=== PATIENT | female | born 1955 | race Caucasian/White ===

== ENCOUNTER → 2017-07-08 14:55 | Outpatient (CLI) | payer BC, SELFPAY ==
--- NOTE | 2017-07-08 | US_ITS ---
MM Dig mamm BI DX w/CAD, US breast LT complete COMPARISON: 12/20/2016, 12/11/2016 INDICATION: Follow-up abnormal mammogram ORDERING PHYSICIAN: Mary Aviles PATIENT AGE: 61 years TECHNIQUE: Standard views and prompt centimeters the left breast along with bilateral breast ultrasound FINDINGS: There is dense fibroglandular tissue which decreases sensitivity of mammography. There remains some asymmetric density in the deep lateral aspect of the left breast. Is not significantly changed compared to the previous exam. There are benign-appearing calcifications. Left breast ultrasound: Scattered cysts are present in the left breast including a 4 mm cyst at 1:00, 6 x 5 mm complex cyst at 3:00, 7 x 4 mm complex cyst at 4:00, 3 mm cyst at 7:00, 5 mm complex cyst at 10:00. No solid suspicious appearing nodules evident with no significant change IMPRESSION: Benign findings. No convincing evidence of malignancy with no significant change BI-RADS Category: 2 Benign Finding(s) RECOMMENDED FOLLOW-UP: 6M - 6 MONTH FOLLOW-UP Recommend resume bilateral mammogram in November 2017 (A letter has been sent to the patient regarding results of the study.)
== END ==
PROVIDERS: Family Provider Family Medicine; PCP Family Medicine; Visit Provider Nurse Practitioner Family
DX: R92.8 Other abnormal and inconclusive findings on diagnostic imaging of breast (principal)
CPT/HCPCS: 76641; 77066

== ENCOUNTER → 2018-02-09 16:07 | Outpatient (CLI) | payer BC, SELFPAY ==
--- NOTE | 2018-02-09 16:09 | MM_ITS ---
MM Dig screening mamm BI w/CAD ORDERING PHYSICIAN : Saeed Campo MD PATIENT AGE: 62 years GENDER: Female COMPARISON: September bilateral mammogram & June 2017 left breast INDICATION: ITS.REASON: SCREENING no hormones. No new complaints.. Previous benign excisional biopsy right breast Family history. Paternal aunt with breast cancer TECHNIQUE: Standard CC and MLO images were obtained. R2 CAD reviewed. FINDINGS: Moderately Dense breast tissue at the central portion of the breast bilaterally, extending towards upper-outer quadrant. Similar pattern is been seen previously with no new dominant mass. No discrete architectural distortion or suspicious findings otherwise today. Similar pattern to previous studies overall. RIGHT BREAST:Heterogeneous density breast with no new findings. LEFT BREAST:Area of mild asymmetric density previously noted deep left breast appears stable and I believe merely fibroglandular elements The small area of calcifications at the central left breast appear also stable, & can be followed. IMPRESSION . Stable bilateral mammogram. Moderately dense heterogeneous breast pattern does somewhat decreased sensitivity of mammography Today palpable areas arise low threshold for ultrasound may be of benefit to compliment mammography in this breast pattern I see no discrete new findings on today's study warrant such. BI-RADS Category: 2 Benign Finding(s) RECOMMENDED FOLLOW-UP: 1YR 1 YEAR FOLLOW-UP (A letter has been sent to the patient regarding results of the study.)
== END ==
PROVIDERS: Family Provider Family Medicine; PCP Family Medicine; Visit Provider Family Medicine
DX: Z12.31 Encounter for screening mammogram for malignant neoplasm of breast (principal)
CPT/HCPCS: 77067

== ENCOUNTER → 2018-05-26 15:46 | Outpatient (POV) | payer BC, SELFPAY | PROVIDERS: Visit Provider Dermatology | DX: Z00.00 Encounter for general adult medical examination without abnormal findings (principal) ==

== ENCOUNTER → 2019-04-12 07:41 | Outpatient (CLI) | payer BC, SELFPAY ==
--- NOTE | 2019-04-12 07:48 | MM_ITS ---
PROCEDURE: MM DIG SCREENING MAMM BI W/CAD CLINICAL INDICATION: SCREENING Is a history of breast cancer patient's paternal aunt. There has been a previous biopsy right breast for benign disease. COMPARISON: DMDXUAVL DIG MAMM-DX UNI A/VWS-LT W/CAD from 12/20/2016 DXBI MM Dig mamm BI DX w/CAD from 07/08/2017 [facility] MM Dig screening mamm BI w/CAD from 02/09/2018 TECHNIQUE: Standard CC and MLO images were obtained. R2 CAD reviewed. FINDINGS: Moderate diffuse somewhat heterogenic fibroglandular densities are seen in the central portions of both breasts. The findings are fairly symmetrical bilaterally. There are stable microcalcifications left breast. There is no new or suspicious lesion in either breast and no suspicious microcalcifications. IMPRESSION: Moderate breast density with no suspicious lesions seen BI-RAD Category: 2 Benign Finding(s) FOLLOW-UP: 1YR 1 Year Follow-up (A letter has been sent to the patient regarding results of the study.) Dictated by: Dr. Quincy Oconnell MD 04/13/2019 10:[address] Quincy Oconnell MD in [place] 04/13/2019 10:58
--- NOTE | 2019-04-12 08:25 | XR_ITS ---
PROCEDURE: XR DEXA AXIAL SKELETON CLINICAL HISTORY: OSTEOPENIA COMPARISON: No exams were available for comparison FINDINGS: The L1-L4 density is 1.092 grams/centimeters sq with T-score -0.7. Right femoral neck density is 0.861 grams/centimeters sq with T-score -1.3. There is mild lumbar scoliosis convex left IMPRESSION: Osteopenia with moderate fracture risk. Treatment advised. Suggest follow-up exam March 2021. Dictated by: Clayton Dolan MD 04/12/2019 12:35 Electronically signed by Clayton Dolan MD in [place] 04/12/2019 12:35
== END ==
PROVIDERS: PCP Nurse Practitioner Family; Visit Provider Nurse Practitioner Family
DX: Z12.31 Encounter for screening mammogram for malignant neoplasm of breast (principal); Z13.820 Encounter for screening for osteoporosis; Z78.0 Asymptomatic menopausal state; M85.89 Other specified disorders of bone density and structure, multiple sites
CPT/HCPCS: 77067; 77080

== ENCOUNTER → 2020-04-14 07:45 | Outpatient (CLI) | payer MEDICARE, OTHER, SELFPAY ==
--- NOTE | 2020-04-14 07:51 | MM_ITS ---
PROCEDURE: MM DIG SCREENING MAMM BI W/CAD Digital Breast Tomosynthesis Included CLINICAL INDICATION: SCREENING There is a history of breast cancer in the patient's paternal aunt. There has been a previous biopsy right breast for benign disease. COMPARISON: MG DXBI MM Dig mamm BI DX w/CAD from 07/08/2017 MG [facility] MM Dig screening mamm BI w/CAD from 02/09/2018 MG MM DIG SCREENING MAMM BI W/CAD from 04/12/2019 TECHNIQUE: Standard CC and MLO images and 3D Tomosynthesis was obtained. R2 CAD reviewed. FINDINGS: Moderate diffuse fibroglandular densities are seen in the central portions of both breast and the findings are bilateral and symmetrical. There are few benign-appearing microcalcifications in each breast. There is no suspicious lesion and no suspicious microcalcifications. IMPRESSION: Moderate breast density with no suspicious lesions seen BI-RAD Category: 2 Benign Finding(s) FOLLOW-UP: 1YR 1 Year Follow-up (A letter has been sent to the patient regarding results of the study.) Dictated by: Dr. Quincy Oconnell MD 04/14/2020 12:36 Dr. Quincy Oconnell MD in [place] 04/14/2020 12:36
== END ==
PROVIDERS: PCP Nurse Practitioner Family; Visit Provider Nurse Practitioner Family
DX: Z12.31 Encounter for screening mammogram for malignant neoplasm of breast (principal)
CPT/HCPCS: 77063; 77067

== ENCOUNTER → 2021-04-04 08:14 | Outpatient (CLI) | payer MEDICARE, OTHER, SELFPAY ==
--- NOTE | 2021-04-04 08:19 | MM_ITS ---
PROCEDURE: MM DIG SCREENING MAMM BI W/CAD Digital Breast Tomosynthesis Included CLINICAL INDICATION: SCREENING Cancer patient's paternal aunt. There has been a previous biopsy right breast for benign disease. COMPARISON: MG [facility] MM Dig screening mamm BI w/CAD from 02/09/2018 MG MM DIG SCREENING MAMM BI W/CAD from 04/12/2019 MG MM DIG SCREENING MAMM BI W/CAD from 04/14/2020 TECHNIQUE: Standard CC and MLO images and 3D Tomosynthesis was obtained. R2 CAD reviewed. FINDINGS: Moderate fibroglandular densities are seen in the central portions of both breast and the findings are bilateral and symmetrical. There are couple of benign-appearing microcalcifications left breast. There is no suspicious lesion and no suspicious microcalcifications. IMPRESSION: Moderate breast density with no suspicious lesions seen BI-RAD Category: 2 Benign Finding(s) FOLLOW-UP: 1YR 1 Year Follow-up (A letter has been sent to the patient regarding results of the study.) Dictated by: Dr. Quincy Oconnell MD 04/10/2021 14:18 Dr. Quincy Oconnell MD in [place] 04/10/2021 14:18
--- NOTE | 2021-04-04 08:54 | XR_ITS ---
PROCEDURE: XR DEXA AXIAL SKELETON CLINICAL HISTORY: OSTEOPOROSIS COMPARISON: CR,DX,US BONE3 BONE DENSITOMETRY(HIP:LT SPINE from 09/22/2015 FINDINGS: The right hip BMD is 0.67 with a T-score of -1 6. The left hip BMD is 0.842 with a T-score of -0.8. The lumbar spine BMD is 0.952 with a T-score of -0.9. Previously the lowest density was in the left femoral neck with T-score of -2.1 IMPRESSION: This patient is considered osteopenic according to the World Health Organization criteria. Bone density is between 10 and 25 percent below young normal. Fracture risk is moderate. Treatment is advised. Based on these results a follow-up exam is recommended in 2 year. Dictated by: Clayton Dolan MD 04/05/2021 14:56 Clayton Dolan MD in [place] 04/05/2021 14:56
== END ==
PROVIDERS: PCP Nurse Practitioner Family; Visit Provider Physician Assistant
DX: Z12.31 Encounter for screening mammogram for malignant neoplasm of breast (principal); Z13.820 Encounter for screening for osteoporosis; Z78.0 Asymptomatic menopausal state
CPT/HCPCS: 77063; 77067; 77080

== ENCOUNTER → 2022-04-08 10:10 | Outpatient (CLI) | payer MEDICARE, OTHER, SELFPAY ==
--- NOTE | 2022-04-08 10:13 | MM_ITS ---
PROCEDURE INFORMATION: Exam: MG Bilateral Screening 3D Mammography Exam date and time: 04/08/2022 10:14 AM Age: 66 years old Clinical indication: Screening examination. A paternal aunt had breast cancer. History of benign right excisional biopsy. TECHNIQUE: Imaging protocol: Bilateral Screening tomosynthesis and 2D mammography including computer-aided detection (CAD) when performed. COMPARISON: 1. MG MM DIG SCREENING MAMM BI W/CAD 04/04/2021 8:27 AM 2. MG MM DIG SCREENING MAMM BI W/CAD 04/14/2020 8:06 AM 3. MG MM DIG SCREENING MAMM BI W/CAD 04/12/2019 8:12 AM 4. MG [facility] MM Dig screening mamm BI w/CAD 02/09/2018 4:14 PM FINDINGS: MAMMOGRAPHY: Breast composition: There are scattered areas of fibroglandular density. Mass: None. Architectural distortion: None. Calcifications: No suspicious calcifications. Asymmetric density: None. Skin thickening: None. Axillary adenopathy: None. IMPRESSION: No mammographic evidence of malignancy. Annual screening is recommended unless otherwise clinically indicated. ASSESSMENT: BI-RADS Category 1: Negative
== END ==
PROVIDERS: PCP Nurse Practitioner Family; Visit Provider Nurse Practitioner Family
DX: Z12.31 Encounter for screening mammogram for malignant neoplasm of breast (principal)
CPT/HCPCS: 77063; 77067

== ENCOUNTER → 2022-05-14 08:43 | Outpatient (POV) | payer MEDICARE, OTHER, SELFPAY | PROVIDERS: Visit Provider Dermatology | DX: Z00.00 Encounter for general adult medical examination without abnormal findings (principal) ==

== ENCOUNTER → 2023-02-04 10:27 | Outpatient (CLI) | payer MEDICARE, OTHER, SELFPAY ==
--- NOTE | 2023-02-04 10:39 | XR_ITS ---
FINAL REPORT CLINICAL HISTORY: LT FOOT PAIN COMPARISON: None FINDINGS: LEFT FOOT Three views of the left foot demonstrate no acute fracture or dislocation. There is mild irregularity at the base of the fifth metatarsal. There are mild hypertrophic changes at the first metatarsophalangeal joint. The soft tissues are unremarkable. IMPRESSION: Degenerative changes without acute process. Reviewed, Interpreted and Dictated by Miguel Lentz MD Transcribed by Samara Nelson Authenticated and [facility]
== END ==
PROVIDERS: PCP Nurse Practitioner Family; Visit Provider Nurse Practitioner Family
DX: M79.672 Pain in left foot (principal)
CPT/HCPCS: 73630

== ENCOUNTER → 2023-04-11 07:43 | Outpatient (CLI) | payer MEDICARE, OTHER, SELFPAY ==
--- NOTE | 2023-04-11 07:51 | XR_ITS ---
FINAL REPORT CLINICAL HISTORY: OSTEOPOROSIS COMPARISON: 04/04/2021 FINDINGS: Using L1-4, the bone mineral density of the spine is 0.985 g/cm2, corresponding to T-score of -0.6, within normal limits. Previous 0.952 g/cm2 with T-score of -0.9. Using the left hip, the bone mineral density of the femoral neck is 0.838 g/cm2, corresponding to a T-score of -0.9, within normal limits. Previous 0.842 g/cm2 with T-score of -0.8. Using the right hip, the bone mineral density of the femoral neck is 0.865 g/cm2, corresponding to a T-score of -0.6, within normal limits. Previous 0.675 g/cm2 with T-score of -1.6. FRAX not reported because all T-scores at or above-1.0. NOTE: T-score: Standard deviation compared with peak bone mass of young adult mean. *Following the recommendations of the International Society of Bone densitometry, classification of hip BMD is based on the lower of two T-scores; total hip or femoral neck. IMPRESSION: Normal bone mineral density of the lumbar spine and hips. Reviewed, Interpreted and Dictated by Souleymane Rojas III, MD Transcribed by Samara Nelson Authenticated and [facility]
--- NOTE | 2023-04-11 07:52 | MM_ITS ---
PROCEDURE INFORMATION: Exam: MG Bilateral Screening 3D Mammography Exam date and time: 04/11/2023 7:58 AM Age: 67 years old Clinical indication: Screening examination; Family history of breast cancer in aunt TECHNIQUE: Imaging protocol: Bilateral Screening tomosynthesis and 2D mammography including computer-aided detection (CAD) when performed. COMPARISON: 1. MG MM DIG SCREENING MAMM BI W/CAD 04/08/2022 10:14 AM 2. MG MM DIG SCREENING MAMM BI W/CAD 04/04/2021 8:27 AM FINDINGS: MAMMOGRAPHY: Breast composition: The breasts are heterogeneously dense, which may obscure small masses. Mass: None. Architectural distortion: None. Calcifications: No suspicious calcifications. Asymmetric density: None. Skin thickening: None. Axillary adenopathy: None. IMPRESSION: No mammographic evidence of malignancy. Annual screening is recommended unless otherwise clinically indicated. ASSESSMENT: BI-RADS Category 1: Negative
== END ==
PROVIDERS: PCP Nurse Practitioner Family; Visit Provider Nurse Practitioner Family
DX: Z12.31 Encounter for screening mammogram for malignant neoplasm of breast; Z13.820 Encounter for screening for osteoporosis; Z78.0 Asymptomatic menopausal state
CPT/HCPCS: 77063; 77067; 77080

== ENCOUNTER → 2023-05-06 15:18 | Outpatient (CLI) | payer MEDICARE, OTHER, SELFPAY ==
--- NOTE | 2023-05-06 15:19 | MR_ITS ---
FINAL REPORT CLINICAL HISTORY: R/O stress fracture. FOOT PAIN [id number]. FINDINGS: Multiplanar MR imaging of the left foot was performed without contrast. There is mild bone marrow edema in the heads of the second and third metatarsals, but without well-defined fractures. No bony mass is identified. Mild degenerative changes are noted of the midfoot. The flexor and extensor tendons are intact. No ligamentous injury is identified. The musculature is intact. There is mild posterior plantar fasciitis but without evidence of plantar fascial tear. No soft tissue mass or cyst is identified. IMPRESSION: Bone marrow edema in the heads of the second and third metatarsals but without a well-defined fracture. This is likely reactive. Mild posterior plantar fasciitis. Authenticated and [facility]
== END ==
PROVIDERS: PCP Nurse Practitioner Family; Visit Provider Orthopaedic Surgery
DX: M77.42 Metatarsalgia, left foot (principal)
CPT/HCPCS: 73718

== ENCOUNTER 2024-04-16 12:39 | Outpatient (CLI) | payer MEDICARE, OTHER, SELFPAY ==
--- NOTE | 2024-04-16 12:41 | MM_ITS ---
PROCEDURE INFORMATION: Exam: MG Bilateral Screening 3D Mammography Exam date and time: 04/16/2024 12:49 PM Age: 68 years old Clinical indication: Screening examination TECHNIQUE: Imaging protocol: Bilateral Screening tomosynthesis and 2D mammography including computer-aided detection (CAD) when performed. COMPARISON: 1. MG MM DIG SCREENING MAMM BI W/CAD 04/11/2023 7:58 AM 2. MG MM DIG SCREENING MAMM BI W/CAD 04/08/2022 10:14 AM FINDINGS: MAMMOGRAPHY: Breast composition: The breasts are heterogeneously dense, which may obscure small masses. Mass: None. Architectural distortion: None. Calcifications: No suspicious calcifications. Asymmetric density: None. Skin thickening: None. Axillary adenopathy: None. IMPRESSION: No mammographic evidence of malignancy. Annual screening is recommended unless otherwise clinically indicated. ASSESSMENT: BI-RADS Category 1: Negative.
== END 2024-04-16 23:59 | disposition home or self-care (01) ==
LOC: RAD 12:39
PROVIDERS: PCP Nurse Practitioner Family; Visit Provider Nurse Practitioner Family
DX: Z12.31 Encounter for screening mammogram for malignant neoplasm of breast (principal)
CPT/HCPCS: 77063; 77067

== ENCOUNTER 2024-07-08 11:22 | Day surgery (SDC) | payer MEDICARE, SELFPAY ==
[2024-07-08 11:48] VITALS: BMI 27.1
[2024-07-08 11:57] VITALS: BP 171/85; PULSE 62; RESP 16; TEMP 36.6; O2SAT 97
[2024-07-08] MEDS: LACTATED RINGERS 1000ML 1,000 ML 50 ML IV (12:16)
--- NOTE | 2024-07-08 13:20 | EXP.ANES.CKL ---
[facility] Disclaimer: The information contained in this section may have been updated after the patient was seen, as this information can be updated by other users. Medical History Hyperlipidemia Hypertension Surgical History H/O: hysterectomy Family History Brother Cancer Sister Cancer Social History Smoking Status: Never smoker alcohol intake: never substance use type: denies use current occupational status: other Travel in the last 8 weeks: None Have you lived/traveled outside US in past 30 days?: No Contact w/someone who lives/traveled outside US past 30 days?: No Exposure to someone with infectious disease in past 14 days?: No Do you have a fever (greater than 100.4 F or 38 C)?: No Have you tested positive for COVID-19: No Exposed to someone with COVID-19 in past 14 days?: No Do you have a sore throat?: No Do you have a cough?: No Do you have any weakness?: No Are you experiencing any nausea/vomitting?: No Do you have any diarrhea?: No Are you experiencing any unusual bleeding?: No Do you have any muscle aches/pain?: No Do you have any abdominal pain?: No Are you experiencing loss of taste or smell?: No [facility] Anesthesia Checklist Patient Identification Patient Identification: Arm Band and Family Structural Data Admitted From: Home Planned Operative Procedure/s: colonoscopy. Consent for Planned Operative Procedure(s) Verified: Yes Verified Documents: Surgical Consent and History and Physical NPO Status Verified Time NPO: 00:00 Additional verifications Patient : No Anesthesia Reactions: No Hx Blood Transfusions: No Blood Transfusion Reaction: No Cephalosporin Allergy: No Previous Colonoscopy: Yes Airway Assessment Mallampati Score:: Class II C-Spine Mobility Assessed: Yes TMJ Mobility Assessed: Yes Dentition: Good Dentition Neurological Assessment Level of Consciousness: Awake, Alert, Appropriate and Follows Commands Hx Seizures: No Numbness or tingling in extremities: No Anesthesia Plan Anesthesia Risk discussed: Yes ASA Class: II Anesthesia Type: MAC Preoperative Comments Pre-Operative Comments: family history of colon cancer.
--- NOTE | 2024-07-08 13:34 | P.HP_ITS ---
History of Present Illness *Admission Date: 07/08/24 *Reason for visit:: Screening/surveillance and family history *History of present illness: Mrs. Beasley is a 68-year-old female who is here for follow-up surveillance colonoscopy. The patient did have a colonoscopy 7 years ago at which time a single polyp (small adenoma) was removed. Her brother had colon cancer at the age of 65. The examination is deemed medically necessary for surveillance colonoscopy. The patient has been seen, interviewed and examined prior to the procedure by both myself and the anesthesia provider. [facility] Disclaimer: The information contained in this section may have been updated after the patient was seen, as this information can be updated by other users. Medical History (Updated 07/08/24 @ 13:35 by Oleg Mccauley II, MD) Hyperlipidemia Hypertension Surgical History H/O: hysterectomy Family History Brother Cancer Sister Cancer Social History Smoking Status: Never smoker alcohol intake: never substance use type: denies use current occupational status: other Travel in the last 8 weeks: None Have you lived/traveled outside US in past 30 days?: No Contact w/someone who lives/traveled outside US past 30 days?: No Exposure to someone with infectious disease in past 14 days?: No Do you have a fever (greater than 100.4 F or 38 C)?: No Have you tested positive for COVID-19: No Exposed to someone with COVID-19 in past 14 days?: No Do you have a sore throat?: No Do you have a cough?: No Do you have any weakness?: No Are you experiencing any nausea/vomitting?: No Do you have any diarrhea?: No Are you experiencing any unusual bleeding?: No Do you have any muscle aches/pain?: No Do you have any abdominal pain?: No Are you experiencing loss of taste or smell?: No Other Medical History Have you received the Pneumonia Vaccine: No Review of Systems Review of Systems Review of systems (narrative): Negative *Cardiovascular Comments: Negative *Gastrointestinal Comments: Negative *Genitourinary Comments: Negative *Musculoskeletal Comments: Negative *Neurologic Comments: Negative Meds Home Medications and Allergies Home Medications ?Medication ?Instructions ?Recorded ?Confirmed ?Type losartan 50 mg tablet 50 mg PO DAILY 07/06/24 07/08/24 History rosuvastatin 10 mg tablet 10 mg PO DAILY 07/06/24 07/08/24 History New Prescriptions to Start Prescriptions: Allergies Allergy/AdvReac Type Severity Reaction Status Date / Time latex (LATEX) Allergy Unknown I-RASH Verified 07/08/24 11:55 Exam Data for Last 24 hours Vital signs and Labs for Last 24 Hours: Temp Pulse Resp BP Pulse Ox O2 Del Method 97.9 F 62 16 171/85 H 97 Room Air 07/08/24 11:57 07/08/24 11:57 07/08/24 11:57 07/08/24 11:57 07/08/24 11:57 07/08/24 11:57 I & O for Last 24 hours: Intake & Output 07/05/24 07/06/24 07/07/24 07/08/24 23:59 23:59 23:59 23:59 Weight 158 lb *Routine HEENT Exam Head: Present normocephalic Eye: Present EOMI and PERRL ENT: Present mucous membranes moist *Routine Neck Exam Neck: Present supple *Routine Respiratory Exam Respiratory: Present CTA bilaterally *Routine Cardiovascular Exam Cardiovascular: Present RRR *Routine Abdominal Exam Abdominal: Present soft and normoactive bowel sounds; Absent tenderness *Routine Rectal Exam Rectal:: deferred *Routine Genitalia Exam Genitalia:: deferred *Routine Extremities Exam Extremities: Absent cyanosis, clubbing or edema *Routine Skin Exam Skin: Present warm; Absent rash *Routine Neurological Exam Neurological: Present alert and oriented X3 Assessment and Plan *Assessment and plan (1) Personal history of adenomatous and serrated colon polyps: Status: Acute Category: Medical Code(s): Z86.0101 - Personal history of adenomatous and serrated colon polyps (2) Family history of colon cancer: Status: Acute Category: Medical Code(s): Z80.0 - Family history of malignant neoplasm of digestive organs Plan A/P: 1. Personal history of an adenomatous polyp (7 years ago) and family history of colon cancer is the preprocedural diagnosis. The patient will be anesthetized/sedated using MAC sedation. The patient has been seen and examined. Cardiac and lung assessment prior to the examination is stable. Proceed with planned surveillance colonoscopy
--- NOTE | 2024-07-08 13:35 | P.PCN_ITS ---
[facility] Procedure Note Date: 07/08/24 Time: 13:49 Procedure Note:: Colonoscopy Procedure Report: Colonoscopy with cold snare polypectomy Endoscopist: Oleg Mccauley II, MD Referring physician: Mary CRAIG Date of Procedure: July 08, 2024 Equipment: Olympus 190 variable stiffness pediatric colonoscope Sedation: MAC sedation Indication: Mrs. Beasley is a 68-year-old female who is here for follow-up surveillance colonoscopy. The patient's last colonoscopy was 7 years ago at [facility] time a single polyp (small tubular adenoma) was removed. The patient does state that her brother had colon cancer at the age of 65. She reports no abdominal pain, weight loss, change in her bowel habits or rectal bleeding. Procedure: Prior to the procedure, a history and physical exam was performed, and patient's medications and allergies were reviewed. The risks, benefits and alternatives of the sedation and procedure were discussed with the patient. All questions were answered and informed consent was obtained. The patient was brought to the procedure room. Patient identification and proposed procedure were verified by the physician and the nurse. The patient was placed in a left lateral decubitus position and the scope was passed under direct vision. Throughout the procedur e, the patient's blood pressure, pulse, and oxygen saturations were monitored continuously. The colonoscopy was accomplished without difficulty. The patient tolerated the procedure well. Findings: On digital rectal examination there was normal rectal tone. There were no external hemorrhoids. The colonoscope was introduced through the anal canal to the rectum and advanced to the cecum. The ileocecal valve and appendiceal orifice were identified. The scope was advanced a short distance into the ileum which appeared grossly normal. The scope was then withdrawn into the colon. There was a single 4 mm sessile ascending colon polyp that was removed via cold snare polypectomy. The remaining cecum, ascending, transverse, descending, sigmoid and rectum were grossly normal. There were no mucosal abnormalities identified. Upon retroflexion within the rectum there were grade 2 internal hemorrhoids.The preparation was excellent throughout with [place] Preparation Score of 9. The cecal time was 12 minutes. Impression: 1. Diminutive ascending colon polyp (4 mm) 2. Grade 2 internal hemorrhoids Plan: I will follow-up the polyp histology and recommend repeat surveillance colonoscopy again in 5 years. I would encourage psyllium fiber supplementation on a maintenance basis.
[2024-07-08 13:53] VITALS: BP 93/46; PULSE 60; RESP 16; O2SAT 97
[2024-07-08 14:03] VITALS: BP 140/68; PULSE 65; RESP 16; O2SAT 97
[2024-07-08 14:13] VITALS: BP 124/82; PULSE 60; RESP 18; O2SAT 96
[2024-07-08 14:23] VITALS: BP 147/74; PULSE 60; RESP 18; O2SAT 96
== END 2024-07-08 14:36 | disposition home or self-care (01) ==
PROVIDERS: PCP Nurse Practitioner Family; Visit Provider Internal Medicine Gastroenterology
PROC: (CPT 45385; principal; 2024-07-08 13:00)
DX: D12.2 Benign neoplasm of ascending colon (principal); K64.1 Second degree hemorrhoids; Z86.0101 Personal history of adenomatous and serrated colon polyps; Z80.0 Family history of malignant neoplasm of digestive organs; Z12.11 Encounter for screening for malignant neoplasm of colon
CPT/HCPCS: 45385; 88305; J7120

== ENCOUNTER 2025-05-04 08:12 | Outpatient (CLI) | payer MEDICARE, SELFPAY ==
--- NOTE | 2025-05-04 08:15 | MM_ITS ---
PROCEDURE INFORMATION: Exam: MG Bilateral Screening 3D Mammography Exam date and time: 05/04/2025 8:36 AM Age: 69 years old Clinical indication: Screening examination TECHNIQUE: Imaging protocol: Bilateral Screening tomosynthesis and 2D mammography including computer-aided detection (CAD) when performed. COMPARISON: 1. MG MM DIG SCREENING MAMM BI W/CAD 04/16/2024 12:49 PM 2. MG MM DIG SCREENING MAMM BI W/CAD 04/11/2023 7:58 AM FINDINGS: MAMMOGRAPHY: Breast composition: The breasts are heterogeneously dense, which may obscure small masses. Mass: No suspicious masses. Architectural distortion: None. Calcifications: No suspicious calcifications. Asymmetric density: None. Skin thickening: None. Axillary adenopathy: None. IMPRESSION: No mammographic evidence of malignancy. Annual screening is recommended unless otherwise clinically indicated. ASSESSMENT: BI-RADS Category 1: Negative.
--- NOTE | 2025-05-04 08:15 | XR_ITS ---
FINAL REPORT CLINICAL HISTORY: SCREENING COMPARISON: 04/11/2023 FINDINGS: Using L1-4, the bone mineral density of the spine is 0.963 g/cm2, corresponding to T-score of -0.8, within normal limits. Previously was 0.985 with a T-score of -0.6. Using the left hip, the bone mineral density of the total hip is 0.777 g/cm2, corresponding to a T-score of -1.4, consistent with osteopenia. Previously was 0.838 with a T-score of -0.9. Using the right hip, the bone mineral density of the femoral neck is 0.836 g/cm2, corresponding to a T-score of -0.9, within normal limits, previously was 0.865 with a T-score of -0.6. FRAX 10 year fracture risk is 0.8% for a hip fracture and 8.4% for a major osteoporotic fracture. NOTE: T-score: Standard deviation compared with peak bone mass of young adult mean. *Following the recommendations of the International Society of Bone densitometry, classification of hip BMD is based on the lower of two T-scores; total hip or femoral neck. IMPRESSION: Normal bone mineral density of the lumbar spine and right hip, with diminished bone mineral density in the left hip consistent with osteopenia. Reviewed, Interpreted and Dictated by Miguel Lentz MD Transcribed by Samara Nelson Authenticated and . [facility]
== END 2025-05-04 23:59 | disposition home or self-care (01) ==
LOC: RAD 08:13
PROVIDERS: PCP Nurse Practitioner Family; Visit Provider Nurse Practitioner Family
DX: Z12.31 Encounter for screening mammogram for malignant neoplasm of breast (principal); R92.333 Mammographic heterogeneous density, bilateral breasts; Z78.0 Asymptomatic menopausal state; M85.88 Other specified disorders of bone density and structure, other site
CPT/HCPCS: 77063; 77067; 77080